=== PATIENT | female | born 1960 | race Caucasian/White ===

== ENCOUNTER 2019-03-15 13:42 | Emergency (ER) | payer OTHER ==
--- NOTE | 2019-03-15 13:56 | ED Physician Documentation ---
Dizziness - HISTORIAN Historian: patient - HPI Chief Complaint: Dizziness Additional Information: Patient presents to the ER with "heaviness in head". She was at a luncheon and had a heavy meal. She was driving home and felt a heavy feeling come over her "brain"- she denies any visual disturbances; denies any pain. She did not think anything of it at first because it happened once a couple of years ago and never came back. However, this time it started to occur again so she pulled over and came to hospital. She has no neurological defects but feels that the episode also made her stomach upset. She denies any history of migraines with aura. She states that she is post menopausal. Timing: sudden onset Duration: intermittent episodes Severity: mild Associated Symptoms: nausea, other (slight dizziness) Decreased Ability to Stand/ Walk: walks w/o assistance Usually: walks w/o assistance Worsened By: nothing - ROS CONST: none EYES/ENT: none GI/: none MS/SKIN/LYMPH: none NEURO/PSYCH: none CVS/RESP: none - PAST HX Past History: other (GERD) Surgeries/Procedures: BTL, other (ablation, arthoscopic surgery of knees) Immunizations: UTD Allergies/Adverse Reactions: Allergies Allergy/AdvReac Type Severity Reaction Status Date / Time No Known Allergies Allergy Verified 03/15/19 14:03 Home Medications: Ambulatory Orders Medication Instructions Recorded Omeprazole 1 tab PO DAILY 03/15/19 - SOCIAL HX Smoking History: non-smoker Alcohol Use: none Drug Use: none - FAMILY HX Family History: none - REVIEWED ASSESSMENTS Nursing Assessment Reviewed: Yes Vitals Reviewed: Yes ED Results Lab/Radiology - Radiology Radiology Impressions: CLINICAL HISTORY: DIZZINESS AND NAUSEA TODAY COMPARISON: No study for comparison is available at the time of interpretation. TECHNIQUE: Head CT without contrast Brain: No intracranial hemorrhage, hydrocephalus, acute parenchymal edema or evident mass. Calvarium: Unremarkable. Sinuses (partially visualized): Clear. IMPRESSION: No acute intracranial findings. Dr. Eyad George EKG- NSR Rate of 65 - Orders Orders: ED Orders Category Date Time Status CT BRAIN W/O CONTRAST Stat Exams 03/15/19 Ordered CBC/PLATELET/DIFF Routine Lab 03/15/19 13:54 Received CMP Routine Lab 03/15/19 13:54 Ordered TSH Stat Lab 03/15/19 Ordered Dizziness Physical Exam - Physical Exam General Appearance: no distress EENT: eye inspection normal, ENT inspection normal, pharynx normal, no signs of dehydration, JAVON Neck: normal inspection, supple Respiratory: breath sounds nml CVS: heart sounds normal, equal pulses Abdomen: soft, normal bowel sounds, non-tender Skin: warm/dry, normal color Neuro: nml orientation, nml speech, nml cognition, mood/affect nml Extremities: non-tender, normal range of motion Cranial: nml as tested Cerebellar: nml as tested, nml gait Sensorimotor: motor nml, sensation nml Discharge Clincal Impression: Hypokalemia, Dizziness Referrals: Primary Doctor,No [Primary Care Provider] - 2 Days Additional Instructions: Increase water intake Increase potassium rich foods in diet (discussed with patient) Cut out sugars/carbs Keep appointment with Dr. Ruiz Tuesday Condition: Good Disposition: 01 HOME, SELF-CARE Decision to Admit: NO (n) Decision Time: 15:54
[2019-03-15 14:12] LABS: eGFR (Non-African) > 60
[2019-03-15 14:44] LABS: BASOPHILS % 0.7 % (0.0-1.5); NEUTROPHILS # 2.4 # k/uL (1.4-7.7); SEGMENTED NEUTROPHILS % 43 % (39-79)
--- NOTE | 2019-03-15 14:48 | Diagnostic Imaging Report ---
PATIENT MR#: [id number] PATIENT PATIENT NAME: ИРИНА GIRON DATE OF : 1960 REFERRING PHYSICIAN: Samanta Juarez EXAM DATE: 03/15/2019 ACCESSION NUMBER: [id number] EXAM DESCRIPTION: CT BRAIN W/O CONTRAST CLINICAL HISTORY: DIZZINESS AND NAUSEA TODAY COMPARISON: No study for comparison is available at the time of interpretation. TECHNIQUE: Head CT without contrast Brain: No intracranial hemorrhage, hydrocephalus, acute parenchymal edema or evident mass. Calvarium: Unremarkable. Sinuses (partially visualized): Clear. IMPRESSION: No acute intracranial findings. Read by: Dr. Eyad George Transcribed by: Eyad George Transcribed Date: 03/15/2019 2:48:33 PM Electronically signed by: Dr. Eyad George Date signed: 03/15/2019 2:48:33 PM
[2019-03-15 16:04] VITALS: BP 134/82
== END 2019-03-15 16:02 | disposition home or self-care (01) ==
LOC: ED 13:42
DX: E87.6 Hypokalemia (principal); R42 Dizziness and giddiness
CPT/HCPCS: 70450; 80053; 84443; 84484; 85025; 93005; 99283